=== PATIENT | female | born 1985 | race Caucasian/White ===

== ENCOUNTER 2020-02-26 17:28 | Inpatient (IN) | payer BC, MEDICAID ==
[~2020-02-26] VITALS: Ht 162.6 cm; Wt 96.2 kg
[2020-03-10] MEDS ORDERED: OXYTOCIN-LR 20 UNITS/1000 ML 1,000 ML IV SCH (17:30)
[2020-03-10] MEDS ORDERED: EPHEDRINE SULFATE 50 MG/ML AMPULE IVP PRN (17:45)
[2020-03-10] MEDS ORDERED: MEPERIDINE-PF 50 MG/ML SYG IVP PRN (17:45)
[2020-03-10] MEDS ORDERED: LACTATED RINGERS 500 ML 500 ML IV PRN (17:45)
[2020-03-10] MEDS ORDERED: NALOXONE HCL 0.4 MG/1 ML ML IV PRN (17:45)
[2020-03-10] MEDS ORDERED: PROMETHAZINE HCL 25 MG/ML 1ML AMPULE IM PRN (17:45)
[2020-03-10 18:27] LABS: HEMATOCRIT 29.2 % (36-48); MEAN CORPUSCULAR HEMOGLOBIN 25.4 pg (27.0-33.0); MEAN CORPUSCULAR HGB CONC 31.8 g/dL (32.0-36.0); MEAN CORPUSCULAR VOLUME 79.8 fL (79-99); RED BLOOD CELL COUNT(AUTO) 3.66 MIL/uL (4.00-5.50); RED CELL DISTRIBUTION WIDTH 13.2 % (11.0-15.5); WHITE BLOOD COUNT (AUTO) 9.7 K/uL (4.8-10.8)
[2020-03-10 18:34] LABS: APPEARANCE,URINE Clear (CLEAR); BILIRUBIN,URINE Negative (NEGATIVE); COLOR,URINE Yellow (YELLOW); GLUCOSE, URINE (UA) TRACE mg/dL (NEGATIVE); KETONES,URINE Trace mg/dL (NEGATIVE); LEUKOCYTE ESTERASE ,URINE Negative (NEGATIVE); NITRATE,URINE Negative (NEGATIVE); OCCULT BLOOD,URINE Negative (NEGATIVE); PH,URINE 5.5 (5.0-8.0); PROTEIN,URINE POS 1+ mg/dL (NEGATIVE)
[2020-03-10] MEDS ORDERED: DINOPROSTONE 10 MG VAGINAL SUPP VG SCH (18:37)
[2020-03-10 18:45] LABS: BACTERIA,URINE Few /HPF (None Seen); SQUAMOUS EPITHELIAL CELL,UR Few /HPF (0-2)
[2020-03-10] MEDS ORDERED: PHARMACY COMMUNICATION MISC SCH (18:45)
[2020-03-10 18:46] LABS: MUCUS,URINE Rare LPF (None Seen)
[2020-03-11] MEDS: LACTATED RINGERS 1000ML 1,000 ML IV PRN ×3 (02:46→10:15)
[2020-03-11] MEDS ORDERED: OXYTOCIN-LR 20 UNITS/1000 ML 1,000 ML IV SCH ×2 (07:00→12:30)
[2020-03-11 07:30] VITALS: BP 105/58
[2020-03-11] MEDS ORDERED: ROPIVACAINE 0.2% 100ML VIAL 100 ML EP SCH (08:00)
[2020-03-11] MEDS ORDERED: LIDOCAINE HCL 1% 20 ML VIAL ONE (10:03)
[2020-03-11] MEDS ORDERED: BENZOCAINE/LANOLIN/ALOE VERA 60 ML AEROSOL TP PRN (12:30)
[2020-03-11] MEDS ORDERED: ACETAMINOPHEN 325 MG TAB PO PRN (12:30)
[2020-03-11] MEDS ORDERED: LANOLIN 30GM OINTMENT TP PRN (12:30)
[2020-03-11] MEDS ORDERED: WITCH HAZEL 1 PAD TP PRN (12:30)
[2020-03-11] MEDS ORDERED: MEASLES/MUMPS/RUBELLA VACCINE, LIVE 0.5 ML/VIAL SQ PRN (12:30)
[2020-03-11] MEDS ORDERED: DIPH,PERTUSS(ACELL),TET VAC/PF 0.5 ML VIAL IM PRN (12:30)
[2020-03-11] MEDS: IBUPROFEN 600 MG TABLET PO PRN (13:43)
[2020-03-11 15:00] VITALS: BP 127/60
[2020-03-11 16:00] VITALS: BP 121/61
[2020-03-11] MEDS: ACETAMINOPHEN WITH CODEINE 1 TAB TAB PO PRN (16:08)
[2020-03-11] MEDS ORDERED: PREN1TAB63 PO (17:09)
[2020-03-11 19:37] VITALS: BP 110/55
[2020-03-11] MEDS: DOCUSATE SODIUM 100 MG CAP PO SCH (21:02)
[2020-03-11 23:52] VITALS: BP 115/57
[2020-03-12] MEDS: ACETAMINOPHEN WITH CODEINE 1 TAB TAB PO PRN (02:20)
[2020-03-12 04:10] VITALS: BP 111/58
[2020-03-12 07:03] LABS: HEMATOCRIT 24.5 % (36-48); MEAN CORPUSCULAR HEMOGLOBIN 24.9 pg (27.0-33.0); MEAN CORPUSCULAR HGB CONC 30.6 g/dL (32.0-36.0); MEAN CORPUSCULAR VOLUME 81.4 fL (79-99); PLATELET COUNT (AUTO) 233 K/uL (130-400); RED BLOOD CELL COUNT(AUTO) 3.01 MIL/uL (4.00-5.50); RED CELL DISTRIBUTION WIDTH 13.3 % (11.0-15.5); WHITE BLOOD COUNT (AUTO) 9.6 K/uL (4.8-10.8)
[2020-03-12 07:19] LABS: HEPATITIS Bs ANTIGEN SCREEN P Negative (Negative)
[2020-03-12 08:30] VITALS: BP 120/72
[2020-03-12] MEDS: DOCUSATE SODIUM 100 MG CAP PO SCH (09:02)
[2020-03-12] MEDS: IBUPROFEN 600 MG TABLET PO PRN (09:02)
[2020-03-12] MEDS ORDERED: DOCU-116 PO (09:40)
[2020-03-12] MEDS ORDERED: IBUP-2077 PO (09:42)
[2020-03-12 12:12] VITALS: BP 114/59
== END 2020-03-12 13:15 | disposition home or self-care (01) | DRG 807 ==
LOC: LDH 03-10 17:10 → WSH 03-11 15:00 → EDSTATUS 03-14 17:01
PROVIDERS: ADMIT Obstetrics & Gynecology; ATTEND Obstetrics & Gynecology
PROC: 10E0XZZ Delivery of Products of Conception, External Approach (ICD-10-PCS; principal; 2020-03-11)
PROC: 10907ZC Drainage of Amniotic Fluid, Therapeutic from Products of Conception, Via Natural or Artificial Opening (ICD-10-PCS; 2020-03-11)
PROC: 0KQM0ZZ Repair Perineum Muscle, Open Approach (ICD-10-PCS; 2020-03-11)
PROC: 3E0R3BZ Introduction of Anesthetic Agent into Spinal Canal, Percutaneous Approach (ICD-10-PCS; 2020-03-11)
PROC: 00HU33Z Insertion of Infusion Device into Spinal Canal, Percutaneous Approach (ICD-10-PCS; 2020-03-11)
PROC: 3E0234Z Introduction of Serum, Toxoid and Vaccine into Muscle, Percutaneous Approach (ICD-10-PCS; 2020-03-11)
PROC: 3E0134Z Introduction of Serum, Toxoid and Vaccine into Subcutaneous Tissue, Percutaneous Approach (ICD-10-PCS; 2020-03-11)
DX: O70.1 Second degree perineal laceration during delivery (principal); Z37.0 Single live birth; Z3A.39 39 weeks gestation of pregnancy; Z23 Encounter for immunization
CPT/HCPCS: 36415; 81001; 85027; 86592; 86850; 86900; 86901; 87340; A4314; G0378; J2590; J7120

== ENCOUNTER 2020-08-17 17:46 | Emergency (ER) | payer BC, MEDICAID ==
[~2020-08-17] VITALS: Ht 162.6 cm; Wt 76.2 kg
[~2020-08-17 17:46] MED LIST: DOCU-116 PO; IBUP-2077 PO; PREN1TAB63 PO
[2020-08-17 17:47] VITALS: BP 104/76
[2020-08-17] MEDS ORDERED: CLINDAMYCIN 150 MG CAP PO SCH (19:00)
[2020-08-17] MEDS ORDERED: TETANUS/DIPHTHERIA TOXOID [ADULT] 0.5 ML VIAL IM ONE (19:00)
[2020-08-17] MEDS ORDERED: AMOX-429 PO (19:37)
[2020-08-17] MEDS ORDERED: CLIN-141 PO (19:37)
[2020-08-17 19:38] VITALS: BP 106/78
== END 2020-08-17 19:48 | disposition home or self-care (01) ==
LOC: EDH 17:46
DX: S81.852A Open bite, left lower leg, initial encounter (principal); Z79.899 Other long term (current) drug therapy; Z88.0 Allergy status to penicillin; W54.0XXA Bitten by dog, initial encounter; Y93.89 Activity, other specified; Y92.89 Other specified places as the place of occurrence of the external cause; Y99.8 Other external cause status
CPT/HCPCS: 90471; 90714